=== PATIENT | male | born 1940 | race Caucasian/White ===

== ENCOUNTER 2020-04-03 09:22 | Emergency (ER) | payer OTHER ==
[2020-04-03 09:39] VITALS: TEMP 97.7; BMI 32.1
--- NOTE | 2020-04-03 09:40 | PDOC ---
History of Present Illness - General Chief Complaint: Syncope/Near Syncope Stated Complaint: SYNCOPE Time Seen by Provider: 04/03/20 09:27 - History of Present Illness Initial Comments: Robin Chandler is a 79 y/o male with PMH significant for HTN, HLD, s/p cardiac stent x1 on aspirin (no plavix), presenting today after syncope. Reports that he was standing in a parking lot waiting for his when he started feeling lightheaded and woke up on the ground. Reports that he had a similar episode in November and attributes this to it being hot outside. Unwitnessed. Denies chest pain/shortness of breath. Denies heart palpitations. Denies decrease in appetitie. No dysuria/diarrhea. No fever/chills. No PMH or FamHx of seizure. Had a cardiology appt a couple of months ago. SocHx: no caffeine/ETOH use Cards: Dr. Gomez Past History - Medical History Allergies/Adverse Reactions: Allergies Allergy/AdvReac Type Severity Reaction Status Date / Time No Known Allergies Allergy Verified 04/03/20 09:33 Home Medications: Ambulatory Orders Amlodipine Besylate 5 mg PO DAILY 04/03/20 Aspirin 81 mg PO DAILY 04/03/20 Losartan Potassium 100 mg PO DAILY 04/03/20 Metoprolol Succinate 50 mg PO DAILY 04/03/20 Rosuvastatin Calcium [Crestor] 40 mg PO DAILY 04/03/20 COPD: No HTN: Yes - Immunization History Immunization Up to Date: No - Psycho-Social/Smoking History Smoking History: Former smoker Have you smoked in the past 12 months: No If you are a former smoker, when did you quit?: 30 years ago Information on smoking cessation initiated: No - Substance Abuse Hx (Audit-C & DAST Scrn) How often the patient has a drink containing alcohol: Monthly or less How often the patient has six or more drinks on one occasion: Never Score: In Men: 4 or > Positive; In Women: 3 or > Positive: 1 Screen Result (Pos requires Nsg. Audit-10AR): Negative In the last yr the pt used illegal drug/Rx for NonMed reason: No Score: Yes response is considered Positive: 0 Screen Result (Positive result requires Nsg. DAST-10): Negative Review of Systems - Review of Systems Comments:: GENERAL/CONSTITUTIONAL: No fever or chills. No weakness._ HEAD, EYES, EARS, NOSE AND THROAT: No change in vision. No change in hearing. No sore throat._ CARDIOVASCULAR: No chest pain or shortness of breath_ RESPIRATORY: Denies cough, hemoptysis_ GASTROINTESTINAL: No nausea, vomiting, diarrhea or constipation._ GENITOURINARY: No dysuria, frequency, or change in urination._ MUSCULOSKELETAL: No joint or muscle swelling or pain. No neck or back pain._ SKIN: No rash_ NEUROLOGIC: Reports loss of consciousness and syncope. Reprots lightheadedness. No headache, vertigo, or change in strength/sensation._ ENDOCRINE: No increased thirst. No abnormal weight change_ HEMATOLOGIC/LYMPHATIC: No anemia, easy bleeding, or history of blood clots._ ALLERGIC/IMMUNOLOGIC: No hives or skin allergy._ *Physical Exam - Vital Signs Last Vital Signs Temp Pulse Resp BP Pulse Ox 97.7 F 70 19 143/87 99 04/03/20 09:33 04/03/20 14:06 04/03/20 14:06 04/03/20 14:06 04/03/20 14:06 - Physical Exam GENERAL: Awake, alert, and oriented to person/place/time, in no acute distress_ HEAD: Abrasion over right forehead and bridge of nose, no facial TTP. EYES: PERRLA, EOMI, sclera anicteric, conjunctiva clear_ ENT: Hearing grossly normal, nares patent, oropharynx clear without exudates. No uvular deviation. Moist mucosa_ NECK: Normal ROM, supple, no lymphadenopathy, JVD, or masses. No c-spine TTP. LUNGS: No distress, speaks in full sentences, clear to auscultation bilaterally _ HEART: Regular rate and rhythm, normal S1 and S2, no murmurs appreciated, peripheral pulses normal and equal bilaterally._ ABDOMEN: Soft, nontender, normoactive bowel sounds. No guarding, no rebound. No masses_ EXTREMITIES: Normal inspection, Normal range of motion, no edema. No clubbing or cyanosis_ NEUROLOGICAL: CN II-XII tested and intact. Sensation intact to sharp/dull differentiation in all extremities. Motor: Normal tone and bulk. No abnormal movements appreciated. No pronator drift. Strength tested and 5/5 in bilateral wrist flexion/extension, elbow flexion/extension, shoulder abduction, straight leg raise, knee flexion/extension, ankle dorsiflexion/plantarflexion. Patient ambulates with a steady gait. Coordination: Finger to nose and heel to friend testing intact bilaterally. SKIN: Warm, Dry, normal turgor, no rashes or lesions noted_ ED Treatment Course - LABORATORY CBC & Chemistry Diagram: 04/03/20 10:02 04/03/20 10:06 - ADDITIONAL ORDERS Additional order review: Laboratory Results 04/03/20 04/03/20 10:06 09:35 Sodium 140 Potassium 4.0 Chloride 108 H Carbon Dioxide 24 Anion Gap 8 BUN 19.4 H Creatinine 1.2 Est GFR (CKD-EPI)AfAm 67.20 Est GFR (CKD-EPI)NonAf 57.98 POC Glucometer 146 Random Glucose 146 H Calcium 8.9 Total Bilirubin 0.9 AST 16 ALT 17 Alkaline Phosphatase 48 Creatine Kinase 109 Troponin I < 0.02 Total Protein 7.1 Albumin 3.3 L 04/03/20 04/03/20 10:02 09:35 RBC 4.49 MCV 90.0 MCHC 33.3 RDW 14.1 MPV 8.9 Neutrophils % 59.3 Lymphocytes % 31.2 Monocytes % 7.3 Eosinophils % 1.3 Basophils % 0.9 POC Glucometer 146 - RADIOLOGY Radiology Studies Ordered: Category Date Time Status CERVICAL SPINE CT W/O CONTR [CT] Stat CT Scan 04/03/20 09:[address] W/O CONTRAST [CT] Stat CT Scan 04/03/20 09:[address] WITHOUT CONTRAST [CT] Stat CT Scan 04/03/20 09:36 Completed CHEST X-RAY PORTABLE* [RAD] Stat Radiology 04/03/20 09:36 Completed - Medications Given in the ED: ED Medications Discontinued Medications Generic Name Dose Route Start Last Admin Trade Name Freq PRN Reason Stop Dose Admin Bacitracin 1 applic 04/03/20 13:17 04/03/20 14:02 Bacitracin - TP 04/03/20 13:18 1 tube ONCE ONE Administration Diphtheria/Tetanus/Acell Pertussis 0.5 ml 04/03/20 13:16 04/03/20 14:02 Boostrix - IM 04/03/20 13:17 0.5 ml .ONCE ONE Administration Sodium Chloride 1,000 ml 04/03/20 09:53 04/03/20 10:17 Normal Saline - IV 04/03/20 09:54 1,000 ml ONCE ONE Administration Medical Decision Making - Medical Decision Making 04/03/20 09:39 79M hx of HTN HLD s/p stent presenting today with syncope and fall from standing. Similar episode in November. Follows cardiology. DDx includes vasovagal syncope vs cardiogenic syncope vs hypoglycemia vs other syncopal etiology. -cbc, cmp -ekg, trop, cxr -CT head, neck, facial bones 04/03/20 09:47 EKG shows 57 bpm, sinus bradycardia, no axis deviation, ME 204, QTc 438, no ST elevation/depression, no prior EKG for comparison. 04/03/20 10:27 CXR read shows no acute chest pathology. 04/03/20 11:17 Labs reviewed. Laboratory Last Values WBC 9.2 K/mm3 (4.0-10.0) 04/03/20 10:02 RBC 4.49 M/mm3 (4.00-5.60) 04/03/20 10:02 Hgb 13.4 GM/dL (11.7-16.9) 04/03/20 10:02 Hct 40.4 % (35.4-49) 04/03/20 10:02 MCV 90.0 fl (80-96) 04/03/20 10:02 MCH 29.9 pg (25.7-33.7) 04/03/20 10:02 MCHC 33.3 g/dl (32.0-35.9) 04/03/20 10:02 RDW 14.1 % (11.9-15.9) 04/03/20 10:02 Plt Count 216 K/MM3 (134-434) 04/03/20 10:02 MPV 8.9 fl (7.5-11.1) 04/03/20 10:02 Absolute Neuts (auto) 5.5 K/mm3 (1.5-8.0) 04/03/20 10:02 Neutrophils % 59.3 % (42.8-82.8) 04/03/20 10:02 Lymphocytes % 31.2 % (8-40) 04/03/20 10:02 Monocytes % 7.3 % (3.8-10.2) 04/03/20 10:02 Eosinophils % 1.3 % (0-4.5) 04/03/20 10:02 Basophils % 0.9 % (0-2.0) 04/03/20 10:02 Nucleated RBC % 0 % (0-0) 04/03/20 10:02 Sodium 140 mmol/L (136-145) 04/03/20 10:06 Potassium 4.0 mmol/L (3.5-5.1) 04/03/20 10:06 Chloride 108 mmol/L (98-107) H 04/03/20 10:06 Carbon Dioxide 24 mmol/L (21-32) 04/03/20 10:06 Anion Gap 8 MMOL/L (8-16) 04/03/20 10:06 BUN 19.4 mg/dL (7-18) H 04/03/20 10:06 Creatinine 1.2 mg/dL (0.55-1.3) 04/03/20 10:06 Est GFR (CKD-EPI)AfAm 67.20 04/03/20 10:06 Est GFR (CKD-EPI)NonAf 57.98 04/03/20 10:06 POC Glucometer 146 UNITS (80-120) 04/03/20 09:35 Random Glucose 146 mg/dL (74-106) H 04/03/20 10:06 Calcium 8.9 mg/dL (8.5-10.1) 04/03/20 10:06 Total Bilirubin 0.9 mg/dL (0.2-1) 04/03/20 10:06 AST 16 U/L (15-37) 04/03/20 10:06 ALT 17 U/L (13-61) 04/03/20 10:06 Alkaline Phosphatase 48 U/L (45-117) 04/03/20 10:06 Creatine Kinase 109 U/L (26-308) 04/03/20 10:06 Troponin I < 0.02 ng/ml (0.00-0.05) 04/03/20 10:06 Total Protein 7.1 g/dl (6.4-8.2) 04/03/20 10:06 Albumin 3.3 g/dl (3.4-5.0) L 04/03/20 10:06 04/03/20 12:17 CT head shows: Mild atrophy without gross CT evidence of acute intracranial pathology. CT facial bones shows minimally displaced fracture at the tip of the nasal bone, of indeterminate age. No other gross fracture. CT c-spine shows no acute fracture, or subluxation. 04/03/20 13:46 The patient has requested to leave the ED against medical advice. The patient reason(s) for leaving include, but are not limited to, the following: would like to follow up with his own registered public health nurse Dr. Gomez outpatient and does not feel he needs additional work up at this time and he has fainted before. I believe this patient is of sound mind and competent to refuse medical care. The patient is responding and asking questions appropriately. The patient is oriented to person, place and time. The patient is not psychotic, delusional, suicidal, homicidal or hallucinating. The patient demonstrates a normal mental capacity to make decisions regarding their healthcare. The patient is clinically sober and does not appear to be under the influence of any illicit drugs at this time. The patient has been advised of the risks, in layman terms, of leaving AMA which include, but are not limited to , coma, permanent disability, loss of current lifestyle, delay in diagnosis. Alternatives have been offered - the patient remains steadfast in their wish to leave. The patient has been advised that should they change their mind they are welcome to return to this hospital, or any other, at any time. The patient understands that in no way does an AMA discharge mean that I do not want them to have the best medical care available. To this end, I have provided appropriate prescriptions, referrals, and discharge instructions. The patient did sign AMA paperwork. The above discussion was witnessed by another member of staff. Discharge - Discharge Information Problems reviewed: Yes Clinical Impression/Diagnosis: Syncope Condition: Stable Disposition: AGAINST MEDICAL ADVICE - Admission No - Follow up/Referral Referrals: Rodo Gomez [Primary Care Provider] - - Patient Discharge Instructions Patient Printed Discharge Instructions: DI for Syncope in Adults (Fainting) Additional Instructions: Please make a follow up appointment with your primary care doctor and with your registered public health nurse. If you experience any new, worsening, or concerning symptoms, including chest pain, shortness of breath, worsening dizziness, loss of consciousness, falls, or any other concern, please return to the emergency department. - Post Discharge Activity
--- NOTE | 2020-04-03 09:50 | PDOC ---
Attending Attestation - Resident Resident Name: Tristian Simon - ED Attending Attestation I have performed the following: I have examined & evaluated the patient, The case was reviewed & discussed with the resident, I agree w/resident's findings & plan, Exceptions are as noted - HPI HPI: 04/03/20 09:48 79y M hx of htn, hl, cad sp stent in 1999, presents for evaluation of syncope. The patient was in his usual state of health until this morning, he was waiting for his in the shade for about an hour, when he felt lightheaded and alittle sweaty, then realized he was on the ground. He denies any associated cp, sob, headache, palpitations, neck pain, back pain, vomiting, tongue biting, urinary or bowel incontineunce, focal numbness/tingling/weakness, vision changes. He denie sany recent fever/chills, cough, diarrhea, melena, bpr, dysuria. Pt has a history of syncope 2x prior to this time, has been worked up each time and thought to be possibly vasovagal. No recent changes in medications PMD: Dr. Baum - Physicial Exam PE: 04/03/20 10:13 GENERAL: The patient is awake, alert, and fully oriented, Nontoxic - in no acute distress. HEAD: Normocephalic, superfical abrasions on nasal bridge/R perioribital region without fcal obny tenderness/crepitus. EYES: extraocular movements intact, sclera anicteric, conjunctiva clear. ENT: Normal voice, Moist mucous membranes. NECK: Normal range of motion, supple LUNGS: Breath sounds equal, clear to auscultation bilaterally. No wheezes, no rhonchi, no rales. HEART: Regular rate and rhythm, normal S1 and S2 without murmur, rub or gallop. ABDOMEN: Soft, nontender, No guarding, no rebound. No CVA tenderness EXTREMITIES: Normal range of motion, no edema. NEUROLOGICAL: No facial assymetry, Normal speech, PSYCH: Normal mood, normal affect. SKIN: Warm, Dry, normal turgor, Back: No midline tenderness to the cervical, thoracic or lumbar spine Musculoskelatal: FROM of b/l shoulders, elbows, wrist. FROM of hips, knees, ankles - No signs of ecchymosis, erythema, or crepitus noted on palpation extremities, chest wall, clavicals, ribs, back. - Medical Decision Making 04/03/20 10:16 79-year-old gentleman history of hypertension hyperlipidemia, CAD presenting status post syncope. No associated pain although he did feel little lightheadedness, nausea, sweaty prior to the syncopal episode. Upon arrival the patient noted to have some abrasions on his forehead and right periorbital region without any focal tenderness his exam was otherwise unremarkable. Differential includes but is not limited to Anemia, metabolic derangements, arrhythmias, vasovagal syncope, dehydration. I considered but as the patient has not had any pain at all, doubt intracranial hemorrhage, vascular catastrophe, PE As cause of syncope. Will obtain blood work, EKG Chest x-ray,. Place the patient on monitoring tech to evaluate for arrhythmias Anticipate admission for further management Heart Score/ECG Review - ECG Impressions Comment:: 04/03/20 10:18 Twelve-lead EKG was performed and reviewed by me. There is normal sinus rhythm with a Rate of 57 The axis is normal. The intervals are normal. There is normal R wave progression There are no ST or T wave abnormalities. Impression: Sinus bradycardia Discharge - Discharge Information Problems reviewed: Yes Clinical Impression/Diagnosis: Eloped from emergency department Syncope Qualifiers: Syncope type: unspecified Qualified Code(s): R55 - Syncope and collapse Condition: Stable Disposition: ELOPED - Follow up/Referral Referrals: Rodo Gomez [Primary Care Provider] - - Patient Discharge Instructions Patient Printed Discharge Instructions: DI for Syncope in Adults (Fainting) Additional Instructions: Please make a follow up appointment with your primary care doctor and with your windows and doors installer. If you experience any new, worsening, or concerning symptoms, including chest pain, shortness of breath, worsening dizziness, loss of consciousness, falls, or any other concern, please return to the emergency department. - Post Discharge Activity
[2020-04-03] MEDS ORDERED: SODIUM CHLORIDE 0.9% 500 ML INFUS.BAG IV ONE (09:53)
[2020-04-03 10:19] LABS: BASO % 0.9 % (0-2.0); EOS % 1.3 % (0-4.5); HEMATOCRIT 40.4 % (35.4-49); HEMOGLOBIN 13.4 GM/dL (11.7-16.9); LYMPH % 31.2 % (8-40); MCH 29.9 pg (25.7-33.7); MCHC 33.3 g/dl (32.0-35.9); MEAN PLT VOLUME 8.9 fl (7.5-11.1); MONO % 7.3 % (3.8-10.2); NEUT % 59.3 % (42.8-82.8); PLATELET COUNT 216 K/MM3 (134-434); RBC 4.49 M/mm3 (4.00-5.60); RDW 14.1 % (11.9-15.9); WHITE BLOOD COUNT 9.2 K/mm3 (4.0-10.0)
[2020-04-03 10:47] LABS: ALBUMIN 3.3 g/dl (3.4-5.0); ALK PHOS 48 U/L (45-117); ANION GAP 8 MMOL/L (8-16); BILIRUBIN,TOTAL 0.9 mg/dL (0.2-1); BLOOD UREA NITROGEN 19.4 mg/dL (7-18); CALCIUM 8.9 mg/dL (8.5-10.1); CHLORIDE 108 mmol/L (98-107); CO2 24 mmol/L (21-32); CREATININE 1.2 mg/dL (0.55-1.3); GLUCOSE,RANDOM 146 mg/dL (74-106); SGOT/AST 16 U/L (15-37); SGPT/ALT 17 U/L (13-61); SODIUM 140 mmol/L (136-145); TOT PROT 7.1 g/dl (6.4-8.2)
[2020-04-03] MEDS ORDERED: DIPHTH,PERTUSS(ACELL),TET 0.5 ML DISP.SYRIN IM ONE ×2 (13:16→13:49)
[2020-04-03] MEDS ORDERED: BACITRACIN 15 GM TUBE TOPICAL OINTMENT TP ONE (13:17)
--- NOTE | 2020-04-03 13:26 | EKG ---
Test Reason : Blood Pressure : / mmHG Vent. Rate : 057 BPM Atrial Rate : 057 BPM P-R Int : 204 ms QRS Dur : 088 ms QT Int : 448 ms P-R-T Axes : 040 003 078 degrees QTc Int : 436 ms POOR DATA QUALITY, INTERPRETATION MAY BE ADVERSELY AFFECTED SINUS BRADYCARDIA OTHERWISE NORMAL ECG NO PREVIOUS ECGS AVAILABLE Confirmed by MD TIM, ABBY ([id number]) on 04/03/2020 1:26:07 PM Referred By: Confirmed By:ABBY DUMONT MD
[2020-04-03] MEDS ORDERED: BACITRACIN 0.9 GM PACKET ONE (13:48)
[2020-04-03 14:07] VITALS: BP 143/87; PULSE 70
== END 2020-04-03 14:11 | disposition left against medical advice (07) ==
LOC: JER 09:22
PROC: 3E0234Z Introduction of Serum, Toxoid and Vaccine into Muscle, Percutaneous Approach (ICD-10-PCS; principal; 2020-04-03)
DX: R55 Syncope and collapse (principal)
CPT/HCPCS: 36415; 70450-TC; 70486-TC; 71045-TC-FY; 72125-TC; 80053; 82550; 82962; 84484; 85025; 90715; 93005; 93010; 99285-25